=== PATIENT | male | born 1960 | race Caucasian/White ===

== ENCOUNTER 2017-01-01 06:23 | Emergency (ER) | payer OTHER ==
[~2017-01-01] VITALS: Ht 162.6 cm; Wt 90.0 kg
[~2017-01-01 06:23] MED LIST: CIPR500T4 PO; CYCL-319 PO; FAMO-18 PO; HYDR-902 PO; HYDR25SU24 PR
[2017-01-01 06:27] VITALS: Ht 162.6 cm; Wt 90.0 kg
[2017-01-01] MEDS ORDERED: HYDR-906 PO (06:45)
[2017-01-01] MEDS ORDERED: ACYC800T57 PO (06:45)
--- NOTE | 2017-01-01 07:02 | ERD ---
ER Documentation Chief Complaint Date/Time DATE: 01/01/17 TIME: 06:48 Chief Complaint rash/shingels? right side body x 5 days HPI 56-year-old male patient with a past medical history of hypertension presents to the ED complaining of a rash noted on the right side of his body that started 5 days ago. Patient reports that it is painful and describes the pain as a burning sensation. Patient rates it a 5 out of 10. States that the rash occurred at a similar time as the pain. States that the pain and itchiness is constant. States that he did not try anything to alleviate the rash. Denies any new use of soaps, detergents, clothing. Denies any exposure to pets or insects. Denies any fever, chills, chest pain, shortness of breath, dyspnea on exertion, wheezing, abdominal pain, nausea, vomiting, diarrhea. Denies others having the same rash. ROS All systems reviewed and are negative except as per history of present illness. Medications Home Meds Active Scripts Hydrocodone/Acetaminophen ([place] 5-325 Tablet) 1 Each Tablet, 1 TAB PO Q6H Y for PAIN, #14 TAB Prov:KACEY COLEY PA-C 01/01/17 Acyclovir* (Zovirax*) 800 Mg Tablet, 800 MG PO 5 TIMES DAILY for 7 Days, TAB Prov:AKCEY COLEY PA-C 01/01/17 Ciprofloxacin Hcl* (Ciprofloxacin Hcl*) 500 Mg Tablet, 500 MG PO BID for 14 Days , TAB Prov:ANASTACIA DIA 05/09/16 Cyclobenzaprine Hcl* (Cyclobenzaprine Hcl*) 10 Mg Tablet, 10 MG PO BID, #10 TAB Prov:DAVID HERRON PA-C 05/02/16 Hydrocodone/Acetaminophen ([place] 10-325 Tablet) 1 Each Tablet, 1 TAB PO Q6H Y for PAIN, #12 TAB Prov:DAVID HERRON PA-C 05/02/16 Hydrocortisone Acetate* (Anusol-HC*) 25 Mg/Supp.rect Supp.rect, 1 SUPP MA HS, # 12 SUPP.RECT Prov:NAUN VENEGAS DO 09/22/15 Famotidine* (Pepcid*) 20 Mg Tablet, 20 MG PO BID for 14 Days, TAB Prov:NAUN VENEGAS DO 09/22/15 Allergies Allergies: Coded Allergies: No Known Allergy (Unverified , 01/25/14) PMhx/Soc Hx Cardiac Disorders: Yes (high cholesterol;htn) Hx Miscellaneous Medical Probl: Yes (htn) Hx Alcohol Use: No Hx Substance Use: No Hx Tobacco Use: No Physical Exam Vitals Vital Signs Date Time Temp Pulse Resp B/P Pulse Ox O2 Delivery O2 Flow Rate FiO2 01/01/17 06:27 98.1 92 18 133/85 99 Physical Exam Const: [id number], well-nourished. In no acute distress. Head: Atraumatic, normocephalic. No Parish's sign. Eyes: Normal Conjunctiva without injection. No purulent discharge. ENT: Normal external ear, nose. TMs pearly alvarado. No septal deviation - normal turbinates. Moist oropharynx without tonsillar exudates. Non-erythematous pharynx. Uvula midline. No drooling. No trismus. Neck: No cervical midline tenderness. Full range of motion. No meningismus. No cervical lymphadenopathy. No JVD. Resp: Clear to auscultation bilaterally. No wheezing, rhonchi, rales, or crackles. No accessory muscle use. No retractions. Cardio: Regular rate and rhythm. No murmurs, rubs or gallops. Abd: Soft, nontender, non distended. Normal bowel sounds. No palpable masses. No rebound tenderness. No guarding. Negative McBurney's point. Negative psoas sign. Negative obturator sign. Skin: No petechiae or purpura. Dermatomal vesicular rash on the lateral aspect under right axilla extending slightly above right abdominal area. No purulent discharge, bleeding, fluctuance, induration noted. No facial involvement of face. Back: No midline tenderness. No CVA tenderness. Ext: No cyanosis, or edema. Neur: Awake and alert. Normal gait. Normal coordination. Cranial Nerves II-VII intact. Sensation intact. Muscle strength 5/5. Psych: Normal Mood and Affect Procedures/MDM 56-year-old male patient with a past medical history of hypertension presents the ED complaining of a dermatomal rash noted on the right lateral aspect of his body under the axilla started 5 days ago. Patient is afebrile and nontoxic- appearing. Patient has normal vital signs. Based on the dermatomal vesicular appearance, patient likely has shingles. No facial involvement. No Parish' s sign. Patient is neurologically intact. No facial paralysis. Low suspicion for Elif Valle Syndrome, herpes ophthalmicus, scabies, SJS/TEN, erythema multiforme, sepsis, cellulitis, necrotizing fascitis, gangrene, meningococcemia or other emergent conditions. Discharge medications: [place], Acyclovir Follow up with primary care physician in 1-2 days. Instructed patient to return to the ED sooner for any worsening symptoms. Patient's questions were answered. Patient understood and agreed with discharge plan. Patient discharged stable. Departure Diagnosis: Primary Impression: Rash and other nonspecific skin eruption Condition: Stable Patient Instructions: Shingles (Herpes Zoster) Referrals: [facility] YOU HAVE RECEIVED A MEDICAL SCREENING EXAM AND THE RESULTS INDICATE THAT YOU DO NOT HAVE A CONDITION THAT REQUIRES URGENT TREATMENT IN THE EMERGENCY DEPARTMENT. FURTHER EVALUATION AND TREATMENT OF YOUR CONDITION CAN WAIT UNTIL YOU ARE SEEN IN YOUR DOCTORS OFFICE WITHIN THE NEXT 1-2 DAYS. IT IS YOUR RESPONSIBILITY TO MAKE AN APPOINTMENT FOR [facility]. IF YOU HAVE A PRIMARY DOCTOR --you should call your primary doctor and schedule an appointment IF YOU DO NOT HAVE A PRIMARY DOCTOR YOU CAN CALL OUR PHYSICIAN REFERRAL HOTLINE AT IF YOU CAN NOT AFFORD TO SEE A PHYSICIAN YOU CAN CHOSE FROM THE FOLLOWING [facility] [address] [facility]. [facility] [address] [facility] [address] [facility]. [facility] [address] [facility] [address] [facility]. [facility]. [address] [facility]. [facility] YOU HAVE RECEIVED A MEDICAL SCREENING EXAM AND THE RESULTS INDICATE THAT YOU DO NOT HAVE A CONDITION THAT REQUIRES URGENT TREATMENT IN THE EMERGENCY DEPARTMENT. FURTHER EVALUATION AND TREATMENT OF YOUR CONDITION CAN WAIT UNTIL YOU ARE SEEN IN YOUR DOCTORS OFFICE WITHIN THE NEXT 1-2 DAYS. IT IS YOUR RESPONSIBILITY TO MAKE AN APPOINTMENT FOR FOLOW-UP CARE. IF YOU HAVE A PRIMARY DOCTOR --you should call your primary doctor and schedule and appointment IF YOU DO NOT HAVE A PRIMARY DOCTOR YOU CAN CALL OUR PHYSICIAN REFERRAL HOTLINE AT . IF YOU CAN NOT AFFORD TO SEE A PHYSICIAN YOU CAN CHOSE FROM THE FOLLOWING [facility] INSTITUTIONS: [facility] [address] [place] [address] [facility] [address] [place] [address] [facility] [address] [place] [address] [facility] U[facility]ENT C[facility]/SPECIALTIES Additional Instructions: You have been given a medicine which may cause drowsiness.DO NOT DRIVE OR OPERATE DANGEROUS MACHINERY while taking this medicine! Call your primary care doctor TOMORROW for an appointment during the next 2-3 days.See the doctor sooner or return here if your condition worsens before your appointment time. KACEY COLEY PA-C Jan 01, 2017 06:59
== END 2017-01-01 06:55 | disposition home or self-care (01) ==
LOC: FTE 06:23
DX: R21 Rash and other nonspecific skin eruption (principal); I10 Essential (primary) hypertension
CPT/HCPCS: 99284

== ENCOUNTER 2017-02-01 20:24 | Emergency (ER) | payer OTHER ==
[~2017-02-01] VITALS: Ht 167.6 cm; Wt 80.0 kg
[~2017-02-01 20:24] MED LIST changes: +ACYC800T57 PO; -FAMO-18 PO; +FAMO-96 PO; +HYDR-906 PO
[2017-02-01 20:31] VITALS: Ht 167.6 cm; Wt 80.0 kg
--- NOTE | 2017-02-01 21:33 | ERD ---
ER Documentation Chief Complaint Date/Time DATE: 02/01/17 TIME: 21:32 Chief Complaint non traumatic r foot pain for past 2 days, swelling noted +distal cms HPI 56-year-old male patient with a past medical history of hypertension presents the ED complaining of right foot pain that started 2 days ago. States that it started to get swollen on top of his foot and slightly warm to touch. States that he had tactile fevers at home. Denies any loss of sensation, loss of range of motion, nausea, weakness, numbness or tingling, vomiting. Denies any chest pain, shortness of breath. Denies any recent traveling or calf pain. ROS All systems reviewed and are negative except as per history of present illness. Medications Home Meds Active Scripts Ibuprofen* (Motrin*) 600 Mg Tab, 600 MG PO Q6, #30 TAB Prov:KACEY COLEY PA-C 02/01/17 Cephalexin* (Keflex*) 500 Mg Capsule, 500 MG PO QID for 7 Days, CAP Prov:KACEY COLEY PA-C 02/01/17 Hydrocodone/Acetaminophen ([place] 5-325 Tablet) 1 Each Tablet, 1 TAB PO Q6H Y for PAIN, #14 TAB Prov:KACEY COLEY PA-C 01/01/17 Acyclovir* (Zovirax*) 800 Mg Tablet, 800 MG PO 5 TIMES DAILY for 7 Days, TAB Prov:KACEY COLEY PA-C 01/01/17 Ciprofloxacin Hcl* (Ciprofloxacin Hcl*) 500 Mg Tablet, 500 MG PO BID for 14 Days , TAB Prov:ANASTACIA DIA 05/09/16 Cyclobenzaprine Hcl* (Cyclobenzaprine Hcl*) 10 Mg Tablet, 10 MG PO BID, #10 TAB Prov:DAVID HERRON PA-C 05/02/16 Hydrocodone/Acetaminophen ([place] 10-325 Tablet) 1 Each Tablet, 1 TAB PO Q6H Y for PAIN, #12 TAB Prov:DAVID HERRON PA-C 05/02/16 Hydrocortisone Acetate* (Anusol-HC*) 25 Mg/Supp.rect Supp.rect, 1 SUPP NC HS, # 12 SUPP.RECT Prov:NAUN VENEGAS DO 09/22/15 Famotidine* (Pepcid*) 20 Mg Tablet, 20 MG PO BID for 14 Days, TAB Prov:NAUN VENEGAS DO 09/22/15 Allergies Allergies: Coded Allergies: No Known Allergy (Unverified , 02/01/17) PMhx/Soc Medical and Surgical Hx: pt denies Medical Hx, pt denies Surgical Hx Hx Cardiac Disorders: Yes (high cholesterol;htn) Hx Miscellaneous Medical Probl: Yes (htn) Hx Alcohol Use: No Hx Substance Use: No Hx Tobacco Use: No Smoking Status: Never smoker Physical Exam Vitals Vital Signs Date Time Temp Pulse Resp B/P Pulse Ox O2 Delivery O2 Flow Rate FiO2 02/01/17 20:31 97.8 81 18 155/95 98 Physical Exam Const: Cwx-iob-[id number], well-nourished. In no acute distress. Head: Atraumatic, normocephalic Eyes: Normal Conjunctiva without injection ENT: Normal external ear, nose and mouth. Neck: Full range of motion. No meningismus. Resp: Clear to auscultation bilaterally. No wheezing, rhonchi, rales, or crackles. No accessory muscle use. No retractions. Cardio: Regular rate and rhythm, no murmurs Skin: No petechiae or rashes Back: No midline tenderness. No CVA tenderness. Ext: No cyanosis. Cap refill less than 2 seconds. Distal pulses intact bilaterally. Erythema, slight edema noted on dorsal aspect of patient's right foot. Full range of motion of height IP, MTP joints bilaterally. Neur: Awake and alert. Normal gait and coordination. Muscle strength 5/5. Sensation intact bilaterally. Psych: Normal Mood and Affect Results 24 hrs Current Medications Medications (Trade) Dose Ordered Sig/Butch Route PRN Reason Start Time Stop Time Status Last Admin Dose Admin Ibuprofen (Motrin) 600 mg ONCE ONCE PO 02/01/17 23:00 02/01/17 23:01 02/01/17 22:51 Procedures/MDM This is a 56-year-old male patient with a past medical history of hypertension presents the ED complaining of right foot pain that started 2 days ago. Patient is afebrile and nontoxic-appearing. Patient has normal vital signs. A right foot x-ray was ordered to further evaluate patient. Differentials include gout versus cellulitis versus unspecified peripheral foot edema. low suspicion for scabies, SJS/TEN, erythema multiforme, sepsis, cellulitis, necrotizing fascitis, gangrene, meningococcemia or other emergent conditions. Patient is neurovascularly intact. Patient's extremity symptoms have stabilized while they have been evaluated in the department and are appropriate for outpatient follow up. No evidence of fractures, dislocations, compartment syndrome, neurologic injury, vascular injury, open joint, open fracture, tendon laceration, septic arthritis, osteomyelitis, DVT, foreign body , or other emergent conditions. Discharge medications: Ibuprofen, Keflex Follow up with primary care physician in 1-2 days. JASON recommended. Instructed patient to return to the ED sooner for any worsening symptoms. Patient's questions were answered. Patient understood and agreed with discharge plan. Patient discharged stable. Departure Condition: Stable Referrals: [facility] YOU HAVE RECEIVED A MEDICAL SCREENING EXAM AND THE RESULTS INDICATE THAT YOU DO NOT HAVE A CONDITION THAT REQUIRES URGENT TREATMENT IN THE EMERGENCY DEPARTMENT. FURTHER EVALUATION AND TREATMENT OF YOUR CONDITION CAN WAIT UNTIL YOU ARE SEEN IN YOUR DOCTORS OFFICE WITHIN THE NEXT 1-2 DAYS. IT IS YOUR RESPONSIBILITY TO MAKE AN APPOINTMENT FOR FOLOW-UP CARE. IF YOU HAVE A PRIMARY DOCTOR --you should call your primary doctor and schedule an appointment IF YOU DO NOT HAVE A PRIMARY DOCTOR YOU CAN CALL OUR PHYSICIAN REFERRAL HOTLINE AT IF YOU CAN NOT AFFORD TO SEE A PHYSICIAN YOU CAN CHOSE FROM THE FOLLOWING [facility]ICS [facility] [address] [facility]. [facility] [address] [facility]. [facility] [address] [facility]. [facility] [address] [facility] [address] [facility]. [facility]. [address] [facility]. [facility] YOU HAVE RECEIVED A MEDICAL SCREENING EXAM AND THE RESULTS INDICATE THAT YOU DO NOT HAVE A CONDITION THAT REQUIRES URGENT TREATMENT IN THE EMERGENCY DEPARTMENT. FURTHER EVALUATION AND TREATMENT OF YOUR CONDITION CAN WAIT UNTIL YOU ARE SEEN IN YOUR DOCTORS OFFICE WITHIN THE NEXT 1-2 DAYS. IT IS YOUR RESPONSIBILITY TO MAKE AN APPOINTMENT FOR FOLOW-UP CARE. IF YOU HAVE A PRIMARY DOCTOR --you should call your primary doctor and schedule and appointment IF YOU DO NOT HAVE A PRIMARY DOCTOR YOU CAN CALL OUR PHYSICIAN REFERRAL HOTLINE AT . IF YOU CAN NOT AFFORD TO SEE A PHYSICIAN YOU CAN CHOSE FROM THE FOLLOWING [facility] INSTITUTIONS: [facility] [address] [place] [address] [facility] [address] [place] [address] [facility] [address] [place] [address] [facility] URGENT CARE/SPECIALTIES Additional Instructions: Call your primary care doctor TOMORROW for an appointment during the next 2-3 days.See the doctor sooner or return here if your condition worsens before your appointment time. KACEY COLEY PA-C Feb 01, 2017 21:33
--- NOTE | 2017-02-01 22:17 | RADRPT ---
PROCEDURE: XR Foot. CLINICAL INDICATION: Pain at the lateral aspect of the fifth toe of the right foot. A reference m arker is directed towards the lateral aspect of the right fifth toe. TECHNIQUE: AP, lateral and oblique views of the right foot was obtained. The images were reviewed on a PACS workstation. COMPARISON: None. FINDINGS: The bones of the foot appear intact, with no evidence of fracture, dislocation, or subluxation. Bone mineralization is normal. Posterior dorsal calcaneal enthesophyte. No significant soft tissue swelling is seen. IMPRESSION: No acute fracture. RPTAT: [facility] Physician Renata Date Time Electronically viewed and signed by Physician Renata on 02/01/2017 22:17 RS/
[2017-02-01] MEDS ORDERED: CEPH-443 PO (22:48)
[2017-02-01] MEDS ORDERED: IBUP-1542 PO (22:48)
[2017-02-01 23:00] VITALS: BP 134/87; PULSE 76; RESP 16
[2017-02-01] MEDS ORDERED: IBUPROFEN 600 MG TAB PO ONE (23:00)
== END 2017-02-01 23:04 | disposition home or self-care (01) ==
LOC: FTE 20:24
DX: M79.671 Pain in right foot (principal); I10 Essential (primary) hypertension
CPT/HCPCS: 73630; Z7610

== ENCOUNTER → 2017-02-04 | Outpatient (CLI) | payer OTHER ==
[~2017-02-04] MED LIST changes: +CEPH-443 PO; +IBUP-1542 PO
--- NOTE | 2017-02-04 16:07 | RADRPT ---
PROCEDURE: Left knee radiographs. CLINICAL INDICATION: Left knee pain. TECHNIQUE: Four views. Weight bearing. Frontal, lateral, oblique, and patellar view. COMPARISON: No prior studies are available for comparison. FINDINGS: There is no fracture or dislocation. There are multiple intra-articular loose bodies anteriorly, posteriorly, and superiorly in the joint and suprapatellar bursa. Soft tissues are otherwise normal. There are moderate degenerative changes with osteophytes arising from all 3 joint compartment margin s. There is medial joint compartment narrowing. There is no lytic or blastic lesion. There is no radiopaque foreign body. IMPRESSION: 1. Multiple intra-articular loose bodies. 2. Moderate degenerative change of the left knee. 3. Otherwise unremarkable study. RPTAT: QQ .Yovany Frazier MD, Date Time Electronically viewed and signed by .Yovany Frazier MD, on 02/04/2017 16:07 .R/
== END | disposition home or self-care (01) ==
LOC: HKI 10:39
PROVIDERS: ATTEND Orthopaedic Surgery
DX: M17.12 Unilateral primary osteoarthritis, left knee (principal); I10 Essential (primary) hypertension; E78.00 Pure hypercholesterolemia, unspecified
CPT/HCPCS: 73564; Z7500; G0463

== ENCOUNTER 2018-02-17 01:20 | Observation (INO) | END 2018-02-19 11:58 | disposition home or self-care (01) ==

== ENCOUNTER 2018-09-23 19:00 | Emergency (ER) | payer OTHER ==
[~2018-09-23] VITALS: Wt 85.0 kg
[~2018-09-23 19:00] MED LIST changes: -ACYC800T57 PO; -CEPH-443 PO; -CIPR500T4 PO; -CYCL-319 PO; +DOCU-144 PO; -FAMO-96 PO; +FER325 PO; +GABA400C14 PO; -HYDR-902 PO; -HYDR-906 PO; +IBUP-1541 PO; -IBUP-1542 PO; +LOSA25TA12 PO; +SIMV5TAB14 PO; +TAMS-14 PO
[2018-09-23] MEDS ORDERED: IBUPROFEN 600 MG TAB PO STA (23:46)
[2018-09-23] MEDS ORDERED: ACETAMINOPHEN 500 MG TAB PO STA (23:46)
--- NOTE | 2018-09-24 00:02 | ERD ---
ER Documentation Chief Complaint Chief Complaint SORE THROAT HEADACHE/SINUS PRESSURE/FEVER X4DAYS HPI This 57-year-old male with past medical history of hypertension who presents with 4-day complaint of sore throat, headache, sinus pressure, and fevers. States he presented to his PMD yesterday and prescribed allergy medications, no antibiotics or anti-influenza medications. He has also had a cough productive of doug colored sputum per patient. He otherwise denies chest pain, shortness of breath, dyspnea, nausea vomiting, diarrhea, abdominal pain, urinary symptoms. He otherwise reports good health prior to this recent illness. Denies any recent travel or sick contacts at home. ROS All systems reviewed and are negative except as per history of present illness. Medications Home Meds Active Scripts Acetaminophen* (Tylophen*) 500 Mg Capsule, 1 CAP PO Q6H PRN for PAIN AND OR ELEVATED TEMP, #20 CAP Prov:JUAN GAVIRIA-C 09/24/18 Azithromycin* (Zithromax*) 500 Mg Tablet, 500 MG PO DAILY for 3 Days, TAB Prov:JUAN GAVIRIA-C 09/24/18 Docusate Sodium* (Colace*) 100 Mg Capsule, 100 MG PO BID for 30 Days, #60 CAP For constipation associated with iron therapy Prov:ANDREW CHOWDARYKaylie . 02/19/18 Ferrous Sulfate* (Ferrous Sulfate*) 325 Mg Tabec, 325 MG PO BID for 30 Days, #60 TAB 2 Refills Prov:ANDREW CHOWDARYKaylie Jairo. 02/19/18 Gabapentin* (Gabapentin*) 400 Mg Capsule, 400 MG PO TID for 2 Days, #6 CAP Prov:ANDREW CHOWDARYKaylie Shyanne 02/19/18 Ibuprofen* (Ibuprofen*) 400 Mg Tablet, 400 MG PO Q8H PRN for PAIN for 2 Days, #6 TAB Prov:ANDREW CHOWDARYKaylie . 02/19/18 Tamsulosin Hcl* (Flomax*) 0.4 Mg Cap.er.24h, 0.4 MG PO HS for 30 Days, #30 CAP 2 Refills Prov:ANDREW CHOWDARYKaylie Shyanne 02/19/18 Hydrocortisone Acetate* (Anusol-HC*) 25 Mg/Supp.rect Supp.rect, 1 SUPP [place] HS, #12 SUPP.RECT Prov:NAUN VENEGAS DO 09/22/15 Reported Medications Losartan Potassium* (Losartan Potassium*) 25 Mg Tablet, 25 MG PO DAILY, TAB 02/17/18 Simvastatin* (Simvastatin*) 5 Mg Tablet, 5 MG PO QHS, #30 TAB 02/17/18 Allergies Allergies: Coded Allergies: No Known Allergy (Unverified , 02/01/17) PMhx/Soc Hx Cardiac Disorders: Yes (htn) Hx Miscellaneous Medical Probl: No Hx Alcohol Use: No Hx Substance Use: No Hx Tobacco Use: No Smoking Status: Never smoker FmHx Family History: No diabetes, No coronary disease, No other Physical Exam Vitals Vital Signs Date Temp Pulse Resp B/P (MAP) Pulse Ox O2 O2 Flow FiO2 Time Delivery Rate 09/23/18 101.9 92 20 129/66 94 Room Air 21:22 (87) 09/23/18 102.3 91 20 129/68 98 19:20 (88) Physical Exam I have reviewed the triage vital signs. Const: Well nourished, well developed, appears stated age Eyes: PERRL, no conjunctival injection HENT: NCAT, Neck supple without meningismus, throat no erythema or edema, no exudates CV: RRR, Warm, well-perfused extremities RESP: trace rhonci to b/l lung guerrero, no wheezing, moving air well, Unlabored respiratory effort GI: soft, non-tender, non-distended, no masses MSK: No gross deformities appreciated Skin: Warm, dry. 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 Sensation and motor function of extremities grossly intact. Psych: Appropriate mood and affect. Results 24 hrs Current Medications Medications Dose Sig/Butch Start Time Status Last (Trade) Ordered Route PRN Stop Time Admin Dose Reason Admin 1,000 mg ONCE STAT 09/23/18 DC 09/23/18 Acetaminophen PO 23:46 23:57 (Tylenol 09/23/18 23:48 Tab) Ibuprofen 600 mg ONCE STAT 09/23/18 DC 09/23/18 (Motrin) PO 23:46 23:57 09/23/18 23:48 Procedures/MDM The patient's clinical presentation is very consistent with an acute viral syndrome. No evidence of pneumonia. The patient is well-appearing without respiratory distress. Normal oxygen saturation. X-ray imaging without consolidation. No indication for Tamiflu. The patient does not exhibit any clinical signs or symptoms concerning for serious bacterial infection or systemic illness. Based on history and clinical exam findings the patient does not appear to have evidence of pneumonia, strep pharyngitis, urinary tract infection, bacteremia, sepsis, or meningitis. I believe it would be appropriate for symptom control, and close outpatient primary care follow-up. ED course: Pain control, x-ray without any acute findings, influenza negative Plan: On patient's insistence despite negative x-ray will prescribe Z-Jose Guadalupe X 3 days. Advised patient to follow-up with PMD. Strict return precautions explained. We discussed follow up with the patient's primary care doctor within 24 to 48 hours as needed. We also discussed return to the emergency room for worsening symptoms or worsening condition. Departure Diagnosis: Primary Impression: Viral syndrome Condition: Stable JUAN GAVIRIA PA-C Sep 24, 2018 00:02
[2018-09-24] MEDS ORDERED: AZIT500T3 PO (00:29)
[2018-09-24] MEDS ORDERED: ACET500C5 PO (00:31)
[2018-09-24 00:40] VITALS: BP 129/73; PULSE 102; RESP 20
== END 2018-09-24 00:49 | disposition home or self-care (01) ==
LOC: FTE 19:00
DX: B34.9 Viral infection, unspecified (principal); I10 Essential (primary) hypertension
CPT/HCPCS: 71045; 87400; Z7502; Z7610

== ENCOUNTER 2018-09-26 21:17 | Emergency (ER) | payer OTHER ==
[~2018-09-26] VITALS: Ht 167.6 cm; Wt 83.1 kg
[~2018-09-26 21:17] MED LIST changes: +ACET500C5 PO; +AZIT500T3 PO
[2018-09-26 21:21] VITALS: Ht 167.6 cm; Wt 83.1 kg
[2018-09-26] MEDS ORDERED: SOD CHLORIDE 0.9% 1,000 ML IV ONE (22:54)
[2018-09-26] MEDS ORDERED: ACETAMINOPHEN 500 MG TAB PO STA (22:54)
[2018-09-27] MEDS ORDERED: POTASSIUM CHLORIDE 100 ML IVPB ONE (00:30)
[2018-09-27] MEDS ORDERED: POTASSIUM CHLORIDE (SR) 20 MEQ TAB PO STA (00:30)
[2018-09-27] MEDS ORDERED: BENZ-6 PO (01:53)
[2018-09-27] MEDS ORDERED: TAMS-14 PO (01:53)
[2018-09-27] MEDS ORDERED: POTA20TA15 PO (02:00)
--- NOTE | 2018-09-27 02:00 | ERD ---
ER Documentation Chief Complaint Chief Complaint DIZZINESS WITH URINARY RETENTION AND URINARY BURNING X5DAYS HPI 57-year-old male presents with multiple complaints. Was seen approximately his ago for URI. Is prescribed Tylenol and Zithromax. He has a persistent cough. He had a normal x-ray at that time. He has sensation of urinary retention although he is able to urinate freely. He also feels body aches and fatigue. He has a history of hypokalemia, possibly from hydrochlorothiazide in the past and he feels similar symptoms to that time. Denies any chest pain, vomiting, significant abdominal pain, and he has a low-grade temperature at triage. Patient was prescribed Flomax in the past but he only took it for a month and did not continue it after follow-up with his primary doctor. ROS All systems reviewed and are negative except as per history of present illness. Medications Home Meds Active Scripts Benzonatate* (Tessalon Perle*) 100 Mg Capsule, 100 MG PO Q8H PRN for COUGH, #15 CAP Prov:MICHELLE TANNER MD 09/27/18 Tamsulosin Hcl* (Flomax*) 0.4 Mg Cap.er.24h, 0.4 MG PO QPM, #30 CAP Prov:MICHELLE TANNER MD 09/27/18 Acetaminophen* (Tylophen*) 500 Mg Capsule, 1 CAP PO Q6H PRN for PAIN AND OR ELEVATED TEMP, #20 CAP Prov:JUAN GAVIRIA PA-C 09/24/18 Azithromycin* (Zithromax*) 500 Mg Tablet, 500 MG PO DAILY for 3 Days, TAB Prov:JUAN GAVIRIA PA-C 09/24/18 Docusate Sodium* (Colace*) 100 Mg Capsule, 100 MG PO BID for 30 Days, #60 CAP For constipation associated with iron therapy Prov:AMANDA CHOWDARY 02/19/18 Ferrous Sulfate* (Ferrous Sulfate*) 325 Mg Tabec, 325 MG PO BID for 30 Days, #60 TAB 2 Refills Prov:AMANDA CHOWDARY. 02/19/18 Gabapentin* (Gabapentin*) 400 Mg Capsule, 400 MG PO TID for 2 Days, #6 CAP Prov:AMANDA CHOWDARY 02/19/18 Ibuprofen* (Ibuprofen*) 400 Mg Tablet, 400 MG PO Q8H PRN for PAIN for 2 Days, #6 TAB Prov:AMANDA CHOWDARY. 02/19/18 Tamsulosin Hcl* (Flomax*) 0.4 Mg Cap.er.24h, 0.4 MG PO HS for 30 Days, #30 CAP 2 Refills Prov:AMANDA CHOWDARY. 02/19/18 Hydrocortisone Acetate* (Anusol-HC*) 25 Mg/Supp.rect Supp.rect, 1 SUPP [place] HS, #12 SUPP.RECT Prov:RUBIESVINJOSE LAYNE 09/22/15 Reported Medications Losartan Potassium* (Losartan Potassium*) 25 Mg Tablet, 25 MG PO DAILY, TAB 02/17/18 Simvastatin* (Simvastatin*) 5 Mg Tablet, 5 MG PO QHS, #30 TAB 02/17/18 Allergies Allergies: Coded Allergies: No Known Allergy (Unverified , 02/01/17) PMhx/Soc History of Surgery: No Anesthesia Reaction: No Hx Neurological Disorder: No Hx Respiratory Disorders: No Hx Cardiac Disorders: Yes (htn) Hx Psychiatric Problems: No Hx Miscellaneous Medical Probl: No Hx Alcohol Use: No Hx Substance Use: No Hx Tobacco Use: No Smoking Status: Never smoker FmHx Family History: No diabetes, No coronary disease, No other Physical Exam Vitals Vital Signs Date Temp Pulse Resp B/P (MAP) Pulse Ox O2 O2 Flow FiO2 Time Delivery Rate 09/26/18 100.6 92 19 132/74 96 21:21 (93) Physical Exam Const: No acute distress Head: Atraumatic Eyes: Normal Conjunctiva ENT: Normal External Ears, Nose and Mouth. Neck: Full range of motion. No meningismus. Resp: Clear to auscultation bilaterally Cardio: Regular rate and rhythm, no murmurs Abd: Soft, non tender, non distended. Normal bowel sounds Skin: No petechiae or rashes Back: No midline or flank tenderness Ext: No cyanosis, or edema Neur: Awake and alert Psych: Normal Mood and Affect Result Diagram: 09/26/18 2303 09/26/18 230 Results 24 hrs Laboratory Tests Test 09/26/18 23:03 White Blood Count 7.8 10^3/ul Red Blood Count 5.08 10^6/ul Hemoglobin 13.6 g/dl Hematocrit 39.7 % Mean Corpuscular Volume 78.1 fl Mean Corpuscular Hemoglobin 26.8 pg Mean Corpuscular Hemoglobin Concent 34.3 g/dl Red Cell Distribution Width 13.2 % Platelet Count 148 10^3/UL Mean Platelet Volume 10.8 fl Immature Granulocytes % 0.300 % Neutrophils % 45.6 % Lymphocytes % 34.8 % Monocytes % 13.0 % Eosinophils % 5.9 % Basophils % 0.4 % Nucleated Red Blood Cells % 0.0 /100WBC Immature Granulocytes # 0.020 10^3/ul Neutrophils # 3.6 10^3/ul Lymphocytes # 2.7 10^3/ul Monocytes # 1.0 10^3/ul Eosinophils # 0.5 10^3/ul Basophils # 0.0 10^3/ul Nucleated Red Blood Cells # 0.0 10^3/ul Urine Color STRAW Urine Clarity CLEAR Urine pH 7.0 Urine Specific [place] 1.004 Urine Ketones NEGATIVE mg/dL Urine Nitrite NEGATIVE mg/dL Urine Bilirubin NEGATIVE mg/dL Urine Urobilinogen NEGATIVE mg/dL Urine Leukocyte Esterase NEGATIVE Anitha/ul Urine Hemoglobin NEGATIVE mg/dL Urine Glucose NEGATIVE mg/dL Urine Total Protein NEGATIVE mg/dl Sodium Level 130 mmol/L Potassium Level 3.0 mmol/L Chloride Level 85 mmol/L Carbon Dioxide Level 28 mmol/L Anion Gap 17 Blood Urea Nitrogen 7 mg/dl Creatinine 0.87 mg/dl Est Glomerular Filtrat Rate mL/min > 60 mL/min Glucose Level 137 mg/dl Calcium Level 9.4 mg/dl Total Bilirubin 0.4 mg/dl Direct Bilirubin 0.00 mg/dl Indirect Bilirubin 0.4 mg/dl Aspartate Amino Transf (AST/SGOT) 154 IU/L Alanine Aminotransferase (ALT/SGPT) 173 IU/L Alkaline Phosphatase 61 IU/L Total Protein 8.4 g/dl Albumin 4.8 g/dl Globulin 3.60 g/dl Albumin/Globulin Ratio 1.33 Lipase 326 U/L Current Medications Medications Dose Sig/Butch Start Time Status Last (Trade) Ordered Route PRN Stop Time Admin Dose Reason Admin 500 mg ONCE STAT 09/26/18 DC 09/26/18 Acetaminophen PO 22:54 23:04 (Tylenol 09/26/18 22:55 Tab) Sodium 1,000 ml @ Q0M ONCE 09/26/18 DC 09/26/18 Chloride 0 mls/hr IV 22:54 23:04 09/26/18 22:55 Potassium 40 meq ONCE STAT 09/27/18 DC 09/27/18 Chloride PO 00:30 00:49 (Klor-Con 20) 09/27/18 00:34 Potassium 100 ml @ ONCE ONCE 09/27/18 09/27/18 Chloride 50 mls/hr IVPB 00:30 01:00 09/27/18 02:29 Procedures/MDM Patient was able to urinate and urine is negative. CBC shows mild anemia which is stable from previous visit. Patient has mild hyponatremia and potassium of 3.0. He has a hypochloremia as well. Urine creatinine are normal. He has mild transaminitis and mild elevation of lipase. Patient was given 1 L normal saline IV, Zofran 4 mill grams IV. EKG: Rate/Rhythm: Normal Sinus Rhythm. Pulse equals 86.. QRS, ST, T-waves: No changes consistent w/ acute ischemia Impression: No evidence of ischemia or arrhythmia Impression-normal EKG Patient was given 20 medical events potassium IV and 40 mEq potassium p.o. Patient presents with approximate 5-day history of body aches, fatigue and URI symptoms. He had normal x-ray 4 days ago and x-ray was deferred given clear lungs on exam with evidence of hypoxemia or respiratory distress. He does have recurrent hyponatremia of uncertain etiology, possibly due to PRIYANK receptor tatum. Patient has no signs of urinary retention although he does have a complaint of difficulty urinating. We will resume Flomax and will give Tessalon for his cough which is likely viral etiology. He has no signs of abdominal pain, additional concerning symptoms. Patient is advised to drink clear fluids and follow-up with his primary care doctor this week. She does return to the ER for new or worsening symptoms. The patient was stable with no new complaints during the ER course. Clinically, there is no current evidence to suggest meningitis, sepsis, acute abdomen, pneumonia, stroke, acute coronary syndrome, pulmonary embolism, aortic dissection or any other emergent condition appearing to require further evaluation or hospitalization. Sodium and potassium currently asymptomatic. Patient counseled regarding my diagnostic impression and care plan. Prior to discharge all questions answered. Pt agrees with treatment plan and understands strict return precautions. Pt is instructed to follow up with primary care provider within 24-48 hours. Precautionary instructions provided including instructions to return to the ER if not improving or for any worsening or changing symptoms or concerns. Departure Diagnosis: Primary Impression: Cough Additional Impression: Multiple complaints Condition: Stable Patient Instructions: Hypokalemia, Uri, Viral, No Abx (Adult) Additional Instructions: See primary doctor for evaluation of blood pressure medications as cause of low potassium. Likely viral syndrome should resolve the next few days. Drink plenty of fluids at home. Recheck for new or worsening symptoms with primary care doctor. Continue Tylenol at home. MICHELLE TANNER MD Sep 27, 2018 02:00
[2018-09-27 03:00] VITALS: BP 120/67; PULSE 84; RESP 20
== END 2018-09-27 03:06 | disposition home or self-care (01) ==
LOC: FTE 21:17
DX: R05 Cough (principal); R42 Dizziness and giddiness
CPT/HCPCS: 36415; 80053; 81003; 83690; 85025; 93005; 96361; 96374; J3480; J7030; Z7502; Z7610

== ENCOUNTER 2018-10-22 08:41 | Emergency (ER) | payer OTHER ==
[~2018-10-22] VITALS: Ht 167.6 cm; Wt 81.0 kg
[~2018-10-22 08:41] MED LIST changes: +BENZ-6 PO; +POTA20TA15 PO
[2018-10-22 08:44] VITALS: BP 141/76; PULSE 87; RESP 16; Ht 167.6 cm; Wt 81.0 kg
[2018-10-22] MEDS ORDERED: PROM6.2515 PO (09:38)
[2018-10-22] MEDS ORDERED: PSEU-79 PO (09:38)
[2018-10-22] MEDS ORDERED: AZIT250T PO (09:38)
[2018-10-22] MEDS ORDERED: BENZ-6 PO (09:38)
--- NOTE | 2018-10-22 09:42 | ERD ---
ER Documentation Chief Complaint Chief Complaint pt is bib self with c/o cough and congestion for a few wks , eye pain HPI 57-year-old male presenting with cough and congestion for a few weeks. Patient is also complaining some irritation to his right eye. He had some yellow discharge has not taken medications for symptoms. Denies fever. Medical history is diabetes, hypercholesterolemia and hypertension. NKDA. Surgical history denies. Social history denies ROS All systems reviewed and are negative except as per history of present illness. Medications Home Meds Active Scripts Erythromycin Base (Erythromycin) 1 Gm Oint...g., 1 APPLIC RIGHT EYE QID for 7 Days Prov:DULCE SANTIZO PA-C 10/22/18 Pseudoephedrine Hcl* (Suphedrin*) 30 Mg Tablet, 30 MG PO Q6 PRN for CONGESTION, #30 TAB Prov:DULCE SANTIZO PA-C 10/22/18 Azithromycin* (Zithromax*) 250 Mg Tablet, 250 MG PO .ZPACK DIRECTED, #6 TAB TAKE 500 MG (2 TABS) THE FIRST DAY THEN 250 MG (1 TAB) DAYS 2-5 Prov:DULCE SANTIZO PA-C 10/22/18 Benzonatate* (Tessalon Perle*) 100 Mg Capsule, 100 MG PO Q8H PRN for COUGH, #30 CAP Prov:DULCE SANTIZO PA-C 10/22/18 Promethazine Hcl* (Promethazine Hcl* Syrup) 6.25 Mg/5 Ml Syrup, 6.25 MG PO Q6H PRN for COUGH, #100 ML Prov:DULCE SANTIZO PA-C 10/22/18 Potassium Chloride* (K-Dur*) 20 Meq Tab.prt.sr, 20 MEQ PO DAILY, #10 TAB.SA Prov:MICHELLE TANNER MD 09/27/18 Benzonatate* (Tessalon Perle*) 100 Mg Capsule, 100 MG PO Q8H PRN for COUGH, #15 CAP Prov:MICHELLE TANNER MD 09/27/18 Tamsulosin Hcl* (Flomax*) 0.4 Mg Cap.er.24h, 0.4 MG PO QPM, #30 CAP Prov:MICHELLE TANNER MD 09/27/18 Acetaminophen* (Tylophen*) 500 Mg Capsule, 1 CAP PO Q6H PRN for PAIN AND OR ELEVATED TEMP, #20 CAP Prov:ERICKJUAN JACINTO PA-C 09/24/18 Azithromycin* (Zithromax*) 500 Mg Tablet, 500 MG PO DAILY for 3 Days, TAB Prov:KHADRAJUAN-Julio C 09/24/18 Docusate Sodium* (Colace*) 100 Mg Capsule, 100 MG PO BID for 30 Days, #60 CAP For constipation associated with iron therapy Prov:AMANDA CHOWDARY. 02/19/18 Ferrous Sulfate* (Ferrous Sulfate*) 325 Mg Tabec, 325 MG PO BID for 30 Days, #60 TAB 2 Refills Prov:AMANDA CHOWDARY . 02/19/18 Gabapentin* (Gabapentin*) 400 Mg Capsule, 400 MG PO TID for 2 Days, #6 CAP Prov:AMANDA CHOWDARY . 02/19/18 Ibuprofen* (Ibuprofen*) 400 Mg Tablet, 400 MG PO Q8H PRN for PAIN for 2 Days, #6 TAB Prov:AMANDA CHOWDARY . 02/19/18 Tamsulosin Hcl* (Flomax*) 0.4 Mg Cap.er.24h, 0.4 MG PO HS for 30 Days, #30 CAP 2 Refills Prov:AMANDA CHOWDARY . 02/19/18 Hydrocortisone Acetate* (Anusol-HC*) 25 Mg/Supp.rect Supp.rect, 1 SUPP SC HS, #12 SUPP.RECT Prov:NAUN VENEGAS DO 09/22/15 Reported Medications Losartan Potassium* (Losartan Potassium*) 25 Mg Tablet, 25 MG PO DAILY, TAB 02/17/18 Simvastatin* (Simvastatin*) 5 Mg Tablet, 5 MG PO QHS, #30 TAB 02/17/18 Allergies Allergies: Coded Allergies: No Known Allergy (Unverified , 02/01/17) PMhx/Soc History of Surgery: No Anesthesia Reaction: No Hx Neurological Disorder: No Hx Respiratory Disorders: No Hx Cardiac Disorders: Yes (htn) Hx Psychiatric Problems: No Hx Miscellaneous Medical Probl: No Hx Alcohol Use: No Hx Substance Use: No Hx Tobacco Use: No FmHx Family History: No diabetes, No coronary disease, No other Physical Exam Vitals Vital Signs Date Temp Pulse Resp B/P (MAP) Pulse Ox O2 O2 Flow FiO2 Time Delivery Rate 10/22/18 97.3 87 16 141/76 97 08:44 (97) Physical Exam GENERAL: The patient is well-appearing, well-nourished, in no acute distress HEENT: Atraumatic. Conjunctivae are pink. Pupils equal, round, and reactive to light. There is no scleral icterus. Tympanic membranes clear bilaterally. Oropharynx clear. Erythematous spot noted to the right lateral eyelid. NECK: C-spine is soft and supple. There is no meningismus. There is no ce rvical lymphadenopathy. CHEST: Clear to auscultation bilaterally. There are no rales, wheezes or rhonchi. HEART: Regular rate and rhythm. No murmurs, clicks, rubs or gallops. Procedures/MDM MDM: 57-year-old male presenting with findings consistent with stye and URI. Patient has had symptoms for the last 3 weeks so we will treat prophylactically with antibiotics. I have low suspicion for meningitis or sepsis. Patient is discharged with strict ER precautions and recommended to follow-up with primary care. Patient is told if symptoms change or worsen to return immediately to the ER. All questions answered at discharge Departure Diagnosis: Primary Impression: Cough Condition: Stable Patient Instructions: Cough, Chronic, Uncertain Cause, (Adult) Referrals: [facility] YOU HAVE RECEIVED A MEDICAL SCREENING EXAM AND THE RESULTS INDICATE THAT YOU DO NOT HAVE A CONDITION THAT REQUIRES URGENT TREATMENT IN THE EMERGENCY DEPARTMENT. FURTHER EVALUATION AND TREATMENT OF YOUR CONDITION CAN WAIT UNTIL YOU ARE SEEN IN YOUR DOCTORS OFFICE WITHIN THE NEXT 1-2 DAYS. IT IS YOUR RESPONSIBILITY TO MAKE AN APPOINTMENT FOR FOLOW-UP CARE. IF YOU HAVE A PRIMARY DOCTOR --you should call your primary doctor and schedule an appointment IF YOU DO NOT HAVE A PRIMARY DOCTOR YOU CAN CALL OUR PHYSICIAN REFERRAL HOTLINE AT IF YOU CAN NOT AFFORD TO SEE A PHYSICIAN YOU CAN CHOSE FROM THE FOLLOWING [facility] [address] [facility]. [facility] [address] [facility] [address] [facility] [facility] [address] [facility] [address] [facility]. [facility] [address] Additional Instructions: FOLLOW UP WITH YOUR PRIMARY CARE PHYSICIAN TOMORROW.Return to this facility if you are not improving as expected. DULCE SANTIZO PA-C Oct 22, 2018 09:42
[2018-10-22] MEDS ORDERED: ERYT1OIN6 RIGHT EYE (09:43)
== END 2018-10-22 10:05 | disposition home or self-care (01) ==
LOC: FTE 08:41
DX: R05 Cough (principal); I10 Essential (primary) hypertension; E11.9 Type 2 diabetes mellitus without complications
CPT/HCPCS: 99283

== ENCOUNTER 2018-11-20 07:00 | Emergency (ER) | payer OTHER ==
[~2018-11-20] VITALS: Ht 167.6 cm; Wt 81.8 kg
[~2018-11-20 07:00] MED LIST changes: +AZIT250T PO; +ERYT1OIN6 RIGHT EYE; +PROM6.2515 PO; +PSEU-79 PO
[2018-11-20 07:03] VITALS: Ht 167.6 cm; Wt 81.8 kg
[2018-11-20] MEDS ORDERED: KETOROLAC 15 MG INJ IV STA (07:33)
--- NOTE | 2018-11-20 07:33 | ERD ---
ER Documentation Chief Complaint Chief Complaint pt is bib self with c/o flank pain radiating to abd x 3 days HPI 67-year-old male with history of hypertension, dyslipidemia, urinary retention and back pain presents to the ED complaining of a 3 to 4-day history of worsening, atraumatic, sharp and achy, nonradiating right lower back pain. Pain is exacerbated by movement but no relieving factors. No radicular symptoms, numbness, tingling or weakness. Denies abdominal pain, chest pain or palpitations. No dysuria, polyuria or hematuria. No fevers or chills. ROS All systems reviewed and are negative except as per history of present illness. Medications Home Meds Active Scripts Erythromycin Base (Erythromycin) 1 Gm Oint...g., 1 APPLIC RIGHT EYE QID for 7 Days Prov:DULCE SANTIZO PA-C 10/22/18 Pseudoephedrine Hcl* (Suphedrin*) 30 Mg Tablet, 30 MG PO Q6 PRN for CONGESTION, #30 TAB Prov:DULCE SANTIZO PA-C 10/22/18 Azithromycin* (Zithromax*) 250 Mg Tablet, 250 MG PO .ZPACK DIRECTED, #6 TAB TAKE 500 MG (2 TABS) THE FIRST DAY THEN 250 MG (1 TAB) DAYS 2-5 Prov:DULCE SANTIZO PA-C 10/22/18 Benzonatate* (Tessalon Perle*) 100 Mg Capsule, 100 MG PO Q8H PRN for COUGH, #30 CAP Prov:DULCE SANTIZO PA-C 10/22/18 Promethazine Hcl* (Promethazine Hcl* Syrup) 6.25 Mg/5 Ml Syrup, 6.25 MG PO Q6H PRN for COUGH, #100 ML Prov:DULCE SANTIZO PA-C 10/22/18 Potassium Chloride* (K-Dur*) 20 Meq Tab.prt.sr, 20 MEQ PO DAILY, #10 TAB.SA Prov:MICHELLE TANNER MD 09/27/18 Benzonatate* (Tessalon Perle*) 100 Mg Capsule, 100 MG PO Q8H PRN for COUGH, #15 CAP Prov:MICHELLE TANNER MD 09/27/18 Tamsulosin Hcl* (Flomax*) 0.4 Mg Cap.er.24h, 0.4 MG PO QPM, #30 CAP Prov:MICHELLE TANNER MD 09/27/18 Acetaminophen* (Tylophen*) 500 Mg Capsule, 1 CAP PO Q6H PRN for PAIN AND OR ELEVATED TEMP, #20 CAP Prov:ERICKJUAN JACINTO-C 09/24/18 Azithromycin* (Zithromax*) 500 Mg Tablet, 500 MG PO DAILY for 3 Days, TAB Prov:ERICKJUAN JACINTO-C 09/24/18 Docusate Sodium* (Colace*) 100 Mg Capsule, 100 MG PO BID for 30 Days, #60 CAP For constipation associated with iron therapy Prov:AMANDA CHOWDARY 02/19/18 Ferrous Sulfate* (Ferrous Sulfate*) 325 Mg Tabec, 325 MG PO BID for 30 Days, #60 TAB 2 Refills Prov:AMANDA CHOWDARY 02/19/18 Gabapentin* (Gabapentin*) 400 Mg Capsule, 400 MG PO TID for 2 Days, #6 CAP Prov:AMANDA CHOWDARY 02/19/18 Ibuprofen* (Ibuprofen*) 400 Mg Tablet, 400 MG PO Q8H PRN for PAIN for 2 Days, #6 TAB Prov:AMANDA CHOWDARY 02/19/18 Tamsulosin Hcl* (Flomax*) 0.4 Mg Cap.er.24h, 0.4 MG PO HS for 30 Days, #30 CAP 2 Refills Prov:AMANDA CHOWDARY 02/19/18 Hydrocortisone Acetate* (Anusol-HC*) 25 Mg/Supp.rect Supp.rect, 1 SUPP [place] HS, #12 SUPP.RECT Prov:NAUN VENEGAS DO 09/22/15 Reported Medications Losartan Potassium* (Losartan Potassium*) 25 Mg Tablet, 25 MG PO DAILY, TAB 02/17/18 Simvastatin* (Simvastatin*) 5 Mg Tablet, 5 MG PO QHS, #30 TAB 02/17/18 Allergies Allergies: Coded Allergies: No Known Allergy (Unverified , 02/01/17) PMhx/Soc History of Surgery: Yes (hemorrhoidectomy) Anesthesia Reaction: No Hx Neurological Disorder: No Hx Respiratory Disorders: No Hx Cardiac Disorders: Yes (htn) Hx Psychiatric Problems: No Hx Miscellaneous Medical Probl: Yes (HTN, BPH, GI Bleed) Hx Alcohol Use: No Hx Substance Use: No Hx Tobacco Use: No Smoking Status: Never smoker FmHx No cancer or stroke Physical Exam Vitals Vital Signs Date Temp Pulse Resp B/P (MAP) Pulse Ox O2 O2 Flow FiO2 Time Delivery Rate 11/20/18 97.3 72 16 153/88 97 07:03 (109) Physical Exam Const: No acute distress Head: Atraumatic Eyes: Normal Conjunctiva ENT: Normal External Ears, Nose and Mouth. Neck: Full range of motion. No meningismus. Resp: Clear to auscultation bilaterally Cardio: Regular rate and rhythm, no murmurs Abd: Soft, non tender, non distended. Normal bowel sounds Skin: No petechiae or rashes Back: No midline or flank tenderness Ext: No cyanosis, or edema Neur: Awake and alert Psych: Normal Mood and Affect Result Diagram: 11/20/18 0740 11/20/18 0740 Results 24 hrs Laboratory Tests Test 11/20/18 07:40 White Blood Count 6.2 10^3/ul Red Blood Count 5.02 10^6/ul Hemoglobin 13.7 g/dl Hematocrit 40.4 % Mean Corpuscular Volume 80.5 fl Mean Corpuscular Hemoglobin 27.3 pg Mean Corpuscular Hemoglobin Concent 33.9 g/dl Red Cell Distribution Width 14.3 % Platelet Count 136 10^3/UL Mean Platelet Volume 10.6 fl Immature Granulocytes % 0.300 % Neutrophils % 42.6 % Lymphocytes % 36.6 % Monocytes % 11.2 % Eosinophils % 8.8 % Basophils % 0.5 % Nucleated Red Blood Cells % 0.0 /100WBC Immature Granulocytes # 0.020 10^3/ul Neutrophils # 2.6 10^3/ul Lymphocytes # 2.3 10^3/ul Monocytes # 0.7 10^3/ul Eosinophils # 0.5 10^3/ul Basophils # 0.0 10^3/ul Nucleated Red Blood Cells # 0.0 10^3/ul Urine Color COLORLESS Urine Clarity CLEAR Urine pH 7.0 Urine Specific [place] 1.004 Urine Ketones NEGATIVE mg/dL Urine Nitrite NEGATIVE mg/dL Urine Bilirubin NEGATIVE mg/dL Urine Urobilinogen NEGATIVE mg/dL Urine Leukocyte Esterase NEGATIVE Anitha/ul Urine Hemoglobin NEGATIVE mg/dL Urine Glucose NEGATIVE mg/dL Urine Total Protein NEGATIVE mg/dl Sodium Level 137 mmol/L Potassium Level 3.2 mmol/L Chloride Level 97 mmol/L Carbon Dioxide Level 29 mmol/L Anion Gap 11 Blood Urea Nitrogen 9 mg/dl Creatinine 0.79 mg/dl Est Glomerular Filtrat Rate mL/min > 60 mL/min Glucose Level 165 mg/dl Calcium Level 9.1 mg/dl Current Medications Medications Dose Sig/Butch Start Time Status Last (Trade) Ordered Route PRN Stop Time Admin Dose Reason Admin Ketorolac 15 mg ONCE STAT 11/20/18 DC 11/20/18 Tromethamine IV 07:33 07:44 (Toradol) 11/20/18 07:35 Potassium 20 meq ONCE STAT 11/20/18 DC 11/20/18 Chloride PO 08:32 08:55 (Klor-Con 20) 11/20/18 08:50 Procedures/MDM DOCUMENTS REVIEWED: ED nurse, prior ED, prior imaging including MRI 02/18/2018 which revealed: 1. Straightening of the lumbar lordosis with multilevel degenerative discogenic changes and enthesopathy most pronounced from L3-L4 through L5-S1. No fracture or traumatic subluxation. 2. Mild bilateral foraminal stenosis at L3-L4 greater on the right. Foraminal disc osteophyte complex may impinge upon the exiting L3 nerve root. 3. Mild to moderate bilateral foraminal and subarticular recess stenosis at L4- L5 with possible impingement on the exiting and descending nerve roots. 4. Severe bilateral foraminal stenosis at L5-S1. 5. Correlate clinically for right L3 and bilateral L4 and L5 radiculopathy. LAB INTERPRETATION: [] MEDICAL DECISION MAKIN-year-old male with history of hypertension, dyslipidemia, urinary retention and back pain presents to the ED complaining of a 3 to 4-day history of worsening, atraumatic, sharp and achy, nonradiating right lower back pain. . Stable for discharge with precautionary instructions and outpatient follow-up as counseled. Counseled patient regarding diagnostic workup, diagnosis and need for followup. Understands to return to ED if symptoms recur, worsen or any other concerns. Departure Diagnosis: Primary Impression: Acute exacerbation of chronic low back pain Condition: Stable (Improved) DANIELA SINGH MD November 20, 2018 07:33
[2018-11-20] MEDS ORDERED: POTASSIUM CHLORIDE (SR) 20 MEQ TAB PO STA (08:32)
[2018-11-20] MEDS ORDERED: NAPR-985 PO (09:19)
[2018-11-20 09:37] VITALS: BP 141/89; PULSE 69; RESP 14
== END 2018-11-20 09:59 | disposition home or self-care (01) ==
LOC: E/R 07:00
DX: M54.5 Low back pain (principal); I10 Essential (primary) hypertension
CPT/HCPCS: 36415; 80048; 81003; 85025; 96374; J1885; Z7502; Z7610